=== PATIENT | male | born 1980 | race Caucasian/White ===

== ENCOUNTER → 2020-12-31 08:29 | Outpatient (BNVA) | payer OTHER, SELFPAY | PROVIDERS: Visit Provider Internal Medicine | DX: S69.91XA Unspecified injury of right wrist, hand and finger(s), initial encounter (principal) | CPT/HCPCS: 11740; 73130; 99202 ==

== ENCOUNTER → 2021-01-02 11:04 | Outpatient (BNVA) | payer OTHER, SELFPAY | PROVIDERS: Visit Provider Internal Medicine | DX: S67.01XA Crushing injury of right thumb, initial encounter (principal); W23.0XXA Caught, crushed, jammed, or pinched between moving objects, initial encounter | CPT/HCPCS: 99213 ==

== ENCOUNTER → 2021-02-03 09:39 | Outpatient (BNVA) | payer OTHER, SELFPAY | PROVIDERS: Visit Provider Internal Medicine | DX: S61.101D Unspecified open wound of right thumb with damage to nail, subsequent encounter (principal); X58.XXXD Exposure to other specified factors, subsequent encounter | CPT/HCPCS: 99213 ==

== ENCOUNTER → 2021-10-01 09:31 | Outpatient (BNVA) | payer OTHER, SELFPAY | PROVIDERS: Visit Provider Physician Assistant Medical | DX: L25.5 Unspecified contact dermatitis due to plants, except food (principal) | CPT/HCPCS: 99202 ==

== ENCOUNTER → 2021-10-07 15:30 | Outpatient (BNVA) | payer OTHER, SELFPAY | PROVIDERS: Visit Provider Physician Assistant Medical | DX: L24.7 Irritant contact dermatitis due to plants, except food (principal) | CPT/HCPCS: 99213 ==

== ENCOUNTER → 2021-10-08 15:23 | Outpatient (BNVA) | payer OTHER, SELFPAY | PROVIDERS: Visit Provider Physician Assistant Medical ==

== ENCOUNTER 2022-10-19 10:05 | Outpatient (REF) | payer OTHER, SELFPAY | END 2022-10-19 10:06 | disposition home or self-care (01) | LOC: HO.HOSX 10:05 | PROVIDERS: Visit Provider Internal Medicine | DX: S67.197A Crushing injury of left little finger, initial encounter (principal); S62.627A Displaced fracture of middle phalanx of left little finger, initial encounter for closed fracture; W31.89XA Contact with other specified machinery, initial encounter | CPT/HCPCS: 29075; 73140; 99203 ==

== ENCOUNTER 2022-10-20 10:55 | Outpatient (REF) | payer SELFPAY ==
--- NOTE | ~2022-10-20 | XR_ITS ---
EXAMINATION: XR HAND, LEFT CLINICAL INFORMATION: Fracture fifth middle phalanx. Follow-up. COMPARISON: Radiographs left hand and finger 10/19/2022. TECHNIQUE: Left hand is imaged in 3 views. FINDINGS: There is a comminuted fracture fifth finger middle phalanx. Fracture fragments are in near-anatomic alignment, no significant change from prior exam. No interval new fracture or dislocation or destructive process. XR/XR hand LT min 3V IMPRESSION: Comminuted fracture fifth finger middle phalanx similar to prior exam.
== END 2022-10-20 10:56 | disposition home or self-care (01) ==
LOC: HO.HOSX 10:55
PROVIDERS: Visit Provider Physician Assistant
DX: S62.627A Displaced fracture of middle phalanx of left little finger, initial encounter for closed fracture (principal)
CPT/HCPCS: 26720; 73130; 99202

== ENCOUNTER 2022-11-04 13:29 | Outpatient (REF) | payer SELFPAY ==
--- NOTE | ~2022-11-04 | XR_ITS ---
EXAMINATION: XR HAND, LEFT CLINICAL INFORMATION: Pain. COMPARISON: Prior radiographs, most recently 10/20/2022. TECHNIQUE: PA, lateral, and oblique views of the left hand. FINDINGS: There is stable alignment of a complex nondisplaced fracture of the left fifth finger middle phalanx. Fracture lines persist but are less apparent. No significant periosteal callus formation is seen. There is no dislocation. The soft tissue planes are unremarkable. XR/XR hand LT min 3V IMPRESSION: There is stable alignment of a comminuted, nondisplaced fracture of the left fifth finger middle phalanx.
== END 2022-11-04 13:30 | disposition home or self-care (01) ==
LOC: HO.HOSX 13:29
PROVIDERS: Visit Provider Orthopaedic Surgery
DX: S62.627D Displaced fracture of middle phalanx of left little finger, subsequent encounter for fracture with routine healing (principal)
CPT/HCPCS: 73130

== ENCOUNTER 2022-11-18 11:41 | Outpatient (REF) | payer SELFPAY ==
--- NOTE | ~2022-11-18 | XR_ITS ---
EXAMINATION: XR HAND, LEFT CLINICAL INFORMATION: Pain COMPARISON: 11/04/2022 TECHNIQUE: PA, lateral, and oblique views of the left hand. FINDINGS: Redemonstration of comminuted fracture of the fifth middle phalanx in unchanged near anatomic alignment. There is less conspicuity of the fracture lines. Surrounding soft tissue is unremarkable. XR/XR hand LT min 3V IMPRESSION: Healing comminuted fracture of the fifth middle phalanx in unchanged near anatomic alignment.
== END 2022-11-18 11:42 | disposition home or self-care (01) ==
LOC: HO.HOSX 11:41
PROVIDERS: Visit Provider Orthopaedic Surgery
DX: S62.627D Displaced fracture of middle phalanx of left little finger, subsequent encounter for fracture with routine healing (principal); X58.XXXD Exposure to other specified factors, subsequent encounter
CPT/HCPCS: 73130

== ENCOUNTER → 2023-03-01 14:30 | Outpatient (BNVA) | payer MEDICAID, SELFPAY | PROVIDERS: PCP Internal Medicine; Visit Provider Physician Assistant | DX: R11.0 Nausea (principal); R19.7 Diarrhea, unspecified | CPT/HCPCS: 99202 ==

== ENCOUNTER 2023-03-17 16:25 | Outpatient (REF) | payer MEDICAID, SELFPAY ==
[2023-03-17 16:38] LABS: MANUAL DIFF FLAG NO
[2023-03-17 17:24] LABS: Basophils Absolute Auto 0.1 X10*3/uL (0.0-0.2); Basophils Percent Auto 1.1 % (0-2); Eosinophils Absolute Auto 0.4 X10*3/uL (0.0-0.4); Eosinophils Percent Auto 4.4 % (0-4); Hematocrit 36.7 % (42.0-52.0); Imm Gran Abs Auto 0.03 X10*3/uL (0.00-0.03); Imm Gran Pct Auto 0.4 % (0.0-0.4); Lymphocytes Absolute Auto 2.9 X10*3/uL (1.2-4.9); Lymphocytes Percent Auto 35.7 % (20-40); Mean Corpuscular HGB Conc 32.7 g/dl (31.0-36.0); Mean Corpuscular Hemoglobin 30.7 pg (27.0-33.0); Mean Corpuscular Volume 93.9 fL (80.0-98.0); Mean Platelet Volume 10.1 fL (9.4-12.4); Monocytes Absolute Auto 0.6 X10*3/uL (0.1-1.2); Monocytes Percent Auto 7.4 % (2-11); Neutrophils Absolute Auto 4.2 x10*3/uL (2.0-8.3); Platelet Count 281 X10*3/uL (160-400); Red Blood Count 3.91 X10*6/uL (4.60-5.80); Red Cell Distribution Width 12.4 % (11.0-16.0); White Blood Count 8.2 X10*3/uL (4.8-10.8)
[2023-03-17 18:53] LABS: Alanine Aminotransferase 16 U/L (0-40); Albumin Level 3.9 g/dL (3.5-5.0); Alkaline Phosphatase 51 U/L (39-117); Anion Gap 13 (12-20); Aspartate Amino Transferase 16 U/L (5-37); Bilirubin Total 0.2 mg/dL (0.0-1.0); Blood Urea Nitrogen 13 mg/dL (9-16); Calcium 9.1 mg/dL (8.4-10.2); Carbon Dioxide 27 mmol/L (22-29); Chloride 107 mmol/L (96-108); Estimated Glomerular Filt Rate > 60; Glucose Random 78 mg/dL (60-115); Potassium 4.6 mmol/L (3.3-5.1); Sodium 142 mmol/L (135-145); Total Protein 5.8 g/dL (6.5-8.0)
[2023-03-17 19:10] LABS: Thyroid Stimulating Hormone 1.93 uIU/mL (0.32-4.0)
[2023-03-20 07:09] LABS: Transglutaminase IgA <1.0 U/mL
[2023-03-22 14:37] LABS: Endomysial IgA Antibody Negative (Negative)
== END 2023-03-17 16:26 | disposition home or self-care (01) ==
LOC: HO.LAB 16:25
PROVIDERS: PCP Internal Medicine; Visit Provider Physician Assistant
DX: K52.9 Noninfective gastroenteritis and colitis, unspecified (principal); R19.8 Other specified symptoms and signs involving the digestive system and abdomen; A04.8 Other specified bacterial intestinal infections
CPT/HCPCS: 36415; 80053; 84443; 85025; 86231; 86364; 87338

== ENCOUNTER → 2023-04-14 14:35 | Outpatient (BNVA) | payer MEDICAID, SELFPAY | PROVIDERS: PCP Internal Medicine; Visit Provider Physician Assistant ==

== ENCOUNTER → 2023-11-03 10:49 | Outpatient (BNVA) | payer OTHER, SELFPAY | PROVIDERS: PCP Internal Medicine; Visit Provider Internal Medicine | DX: H57.8A1 Foreign body sensation, right eye (principal) | CPT/HCPCS: 99203 ==

== ENCOUNTER → 2023-11-05 08:17 | Outpatient (BNVA) | payer OTHER, SELFPAY | PROVIDERS: PCP Internal Medicine; Visit Provider Internal Medicine | DX: H57.8A1 Foreign body sensation, right eye (principal) | CPT/HCPCS: 99213 ==

== ENCOUNTER → 2024-02-09 10:15 | Outpatient (BNVA) | payer OTHER, SELFPAY | PROVIDERS: PCP Internal Medicine; Visit Provider Physician Assistant Medical | DX: S67.21XA Crushing injury of right hand, initial encounter (principal); W23.1XXA Caught, crushed, jammed, or pinched between stationary objects, initial encounter | CPT/HCPCS: 73110; 73130; 99203 ==

== ENCOUNTER → 2024-02-17 15:08 | Outpatient (BNVA) | payer OTHER, SELFPAY | PROVIDERS: PCP Internal Medicine; Visit Provider Physician Assistant Medical | DX: S67.21XA Crushing injury of right hand, initial encounter (principal); W23.1XXA Caught, crushed, jammed, or pinched between stationary objects, initial encounter | CPT/HCPCS: 99213 ==

== ENCOUNTER 2024-08-01 11:24 | Day surgery (SDC) | payer OTHER, SELFPAY ==
--- NOTE | 2024-07-31 13:06 | P.CONAN_ITS ---
Documented by User: Alysia Valdivia NP 07/31/24 13:06 HPI - Anesthesia Eval Consult details Narrative: 44yo M for Upper Endoscopy and Colonoscopy [facility] Active Problems Active Problems: All Active Problems Cyclic vomiting syndrome (Acute) Diarrhea (Acute) Nausea (Acute) Fracture of middle phalanx of left little finger (Acute ~10/19/22) Subungual hematoma of finger of left hand (Acute ~12/31/20) Crushing injury of thumb, left (Acute ~12/31/20) Past Medical History Medical History Smoker Nerve pain Surgical History Surgical History Hx of wisdom tooth extraction Social History Social History Household Members Other:: lives with mother Are you a primary hiv/aids care nurse to a significant other at home: No Do you presently have visiting nurse or other home services: No Patient Tobacco Use Status: Current everyday Tobacco user Tobacco use type: Cigarette Smoked in Last 30 Days: Yes Patient Interested in Nicotine Replacement: No Substance Use Type: Marijuana Substance Use Frequency: Daily Have you been hit, kicked, punched, or otherwise hurt by someone within the past year? 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 Allergies Allergy/AdvReac Type Severity Reaction Status Date / Time No Known Allergies Allergy Verified 08/01/24 13:13 Home Medications ?Medication ?Instructions ?Recorded ?Confirmed ?Last Taken ?Type gabapentin 800 mg tablet 800 mg PO 10/20/22 04/14/23 08/01/24 History Assessment and Plan Assessment Anesthesia Assessment: Chart Reviewed Documented by User: Mercedez Burnham MD 08/01/24 14:19 PMFSH Past Medical History Medical History Smoker Nerve pain Family History Family history of problems with anesthesia: No Surgical History Surgical History Hx of wisdom tooth extraction History of Problems with Anesthesia: No Social History Social History Household Members Other:: lives with mother Are you a primary hiv/aids care nurse to a significant other at home: No Do you presently have visiting nurse or other home services: No Patient Tobacco Use Status: Current everyday Tobacco user Tobacco use type: Cigarette Smoked in Last 30 Days: Yes Patient Interested in Nicotine Replacement: No Substance Use Type: Marijuana Substance Use Frequency: Daily Have you been hit, kicked, punched, or otherwise hurt by someone within the past year? 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 Allergies Allergy/AdvReac Type Severity Reaction Status Date / Time No Known Allergies Allergy Verified 08/01/24 13:13 Home Medications ?Medication ?Instructions ?Recorded ?Confirmed ?Last Taken ?Type gabapentin 800 mg tablet 800 mg PO 10/20/22 04/14/23 08/01/24 History Exam Airway Mallampati Class: II TM Dist: >3cm Neck ROM: Full Heart: rrr Lungs: cta Assessment and Plan Assessment Anesthesia Assessment: Anesthesia Plan Discussed Final Anesthetic Review Family History of Problems with Anesthesia: No History of Problems with Anesthesia: No NPO: Yes ASA Class: II Final Preanesthetic Review: No Changes in Pt Med Stat, Meds/Allgs Chart Reviewed, Consent Obtained/Reviewed and Anes Risks/Benef Reviewed Patient Risk: Low Procedure Risk: Low Anesthetic Plan Anesthetic Plan: MAC: Disposition: Standard PACU
[2024-08-01] MEDS: Lactated Ringers 1,000 ML 100 ML IVCONT (13:31)
--- NOTE | 2024-08-01 13:43 | P.HPSUR_ITS ---
Pre-Procedural Eval Section A - 24 Hr Update-Section A only Date of Service: 08/01/24 Section B - Complete if H&P > 30 days Chief Complaint: Diarrhea, unspecified Relevant Family History (Specify if Yes): Yes Relevant Social History: Tobacco Use Present Medications: see Short Stay Collaborative assessment Medical History: Significant History (diarrhea) History of Previous Operations: Relevant previous surgery/procedure and date(s) Allergies: Allergies Allergy/AdvReac Type Severity Reaction Status Date / Time No Known Allergies Allergy Verified 08/01/24 13:13 Review of Systems Sugical H&P ROS: Negative: Constitution, Cardiovascular, Respiratory, Neurol ogical, Psychiatric, Hem-Onc, Allergic/Immunologic, Gastrointestinal, Genitourinary, Musculoskeletal, Integumentary, Endocrine and Eyes/Ears/Nose/Throat Exam Surgical H&P Exam: Normal: HEENT, Normal: Heart, Normal: Lungs, Normal: Extremities, Normal: Abdomen, Normal: Skin and Normal: Neurological Plan Diagnosis/Plan: Unchanged I have reviewed the history and physical and performed a pertinent physical examination on my patient. No changes have occurred unless specified. Time Spent With Patient Time: Total time managing care of this patient today ____ minutes.
[2024-08-01 13:45] VITALS: BP 110/76; PULSE 78; RESP 18; TEMP 36.8; O2SAT 99
[2024-08-01 13:46] VITALS: BMI 20.1
--- NOTE | 2024-08-01 15:08 | P.OPN-COLO_ITS ---
Colonoscopy Operative Note Operative Note Date of Service: 08/01/24 Narrative: Operative Information Procedure Description: EGD, Colonoscopy Indication: nausea, diarrhea Anesthesia: MAC FLEXIBLE TRANSORAL UPPER GASTROINTESTINAL ENDOSCOPY AND COLONOSCOPY PROCEDURE NOTE UPPER ENDOSCOPY Consent: Indications for the procedure and potential complications of bleeding, perforation, reaction to medications and missed diagnosis were discussed with the patient and informed consent was obtained. Instrument: Olympus GIF H 190 J mid size upper endoscope Monitoring: Vital signs and clinical assessment, continuous EKG monitoring, Pulse oximetry, Carbon Dioxide monitoring and blood pressure monitoring were done throughout the procedure. Procedure: The patient was placed in the left lateral decubitis position and pre-procedure medications were administered and a bite block was placed. The endoscope was inserted into the mouth and advanced under direct vision to the third part of duodenum. A careful inspection was made as the upper endoscope was withdrawn including a retroflexed examination of the proximal stomach; Findings and interventions are described below. Findings: Larynx:normal Esophagus: GE junction at 38 cm, diaphragm hiatus at 41 cm, consistent with 3 cm hiatal hernia, with patulous LES, bx taken from GEJ, distal and proximal Stomach: Patchy erythema. Biopsies were obtained. Grade 3 flap valve on retroflexed examination of the cardia. Duodenum: Normal bulb and descending duodenum, bx taken Intervention: Biopsies as noted above, COLONOSCOPY Instrument: Olympus variable stiffness pediatric scope 190L Colonoscopy Monitoring: Vital signs and clinical assessment, continuous EKG monitoring, Pulse oximetry, Carbon Dioxide monitoring and blood pressure monitoring were done throughout the procedure. Colon withdrawal time was 11 minutes. Procedure: The patient was placed in the left lateral decubitis position and pre-procedure medications were administered. After a digital rectal examination of the ano-rectum, the video colonoscope was inserted into the rectum and advanced through the colon to the cecum/TI. The colonoscope was slowly withdrawn in a retrograde panoramic fashion and the colon mucosa was carefully examined including a retroflexed view of the rectum. Findings and interventions are described below. Procedure Difficulty:moderate Findings: Terminal Ileum-normal, bx taken Random colon bx Cecum:normal Ascending Colon: normal Transverse Colon -normal Descending Colon:normal Sigmoid Colon: normal Rectum: Retroflexion with small internal hemorrhoids, grade I Anorectum - normal Colon preparation: [place] Bowel Preparation Scale Right colon; 2 Transverse colon: 2 Left colon; 2 (0 = Unprepared colon segment with mucosa not seen due to solid stool that cannot be cleared. 1 = Portion of mucosa of the colon segment seen, but other areas of the colon segment not well seen due to staining, residual stool and/or opaque liquid. 2 = Minor amount of residual staining, small fragments of stool and/or opaque liquid, but mucosa of colon segment seen well. 3 = Entire mucosa of colon segment seen well with no residual staining, small fragments of stool or opaque liquid) Impression and Post Procedure Diagnosis: Endoscopy Findings: hiatal hernia gastritis Colonoscopy Findings: internal hemorrhoids Plan: Await Pathology results Repeat Colonoscopy in 10 years or earlier if clinically indicated High fiber diet leaflet avoid straining at stool, epsom salts and sitz bath, anusol supps or cream check PPI compliance consider increasing dose, stop THC Above findings were reviewed with the patient and relevant handouts were provided if indicated.
[2024-08-01 15:15] VITALS: BP 133/70; PULSE 66; RESP 16; TEMP 36.3; O2SAT 100
[2024-08-01 15:30] VITALS: BP 111/80; PULSE 47; RESP 16; O2SAT 100
[2024-08-01] MEDS: ondansetron HCL 4 MG/2 ML VIAL IVPUSH (15:33)
[2024-08-01 15:45] VITALS: BP 144/77; PULSE 50; RESP 18; O2SAT 100
[2024-08-01] MEDS: droPERidol 5 MG/2 ML VIAL 0.625 MG IVPUSH (15:53)
[2024-08-01 15:56] VITALS: PULSE 61; TEMP 36.4; O2SAT 100
== END 2024-08-01 16:13 | disposition home or self-care (01) ==
PROVIDERS: Visit Provider Internal Medicine Gastroenterology
PROC: (CPT 45380; principal; 2024-08-01 14:20)
DX: R19.7 Diarrhea, unspecified (principal); K64.0 First degree hemorrhoids; K29.50 Unspecified chronic gastritis without bleeding; R11.15 Cyclical vomiting syndrome unrelated to migraine; K22.89 Other specified disease of esophagus; K44.9 Diaphragmatic hernia without obstruction or gangrene; M79.2 Neuralgia and neuritis, unspecified; Z79.899 Other long term (current) drug therapy; F17.210 Nicotine dependence, cigarettes, uncomplicated
CPT/HCPCS: 45380; 43239; 88305; 88342; J1790; J2405; J2704

== ENCOUNTER → 2024-08-01 11:24 | Outpatient (BNV) | payer OTHER, SELFPAY | PROVIDERS: Visit Provider Internal Medicine Gastroenterology | DX: R11.0 Nausea (principal); K29.70 Gastritis, unspecified, without bleeding; K22.89 Other specified disease of esophagus; R19.7 Diarrhea, unspecified; K64.0 First degree hemorrhoids | CPT/HCPCS: 43239; 45380 ==